=== PATIENT | female | born 1985 | race Two or more races ===

== ENCOUNTER → 2017-09-27 13:05 | Outpatient (CLI) | payer OTHER | END | disposition home or self-care (01) | LOC: PPHC 13:05 | DX: G89.11 Acute pain due to trauma (principal); M54.5 Low back pain ==

== ENCOUNTER → 2018-07-16 | Emergency (ER) | payer OTHER ==
[~2018-07-16] VITALS: Ht 167.6 cm; Wt 94.3 kg
== END | disposition home or self-care (01) ==
LOC: ER 09:10
DX: R11.11 Vomiting without nausea (principal); R55 Syncope and collapse; E74.39 Other disorders of intestinal carbohydrate absorption

== ENCOUNTER 2025-03-19 06:11 | Outpatient (CLI) | payer OTHER ==
[2025-03-19 08:19] LABS: URINE APPEARANCE Clear; URINE BILIRRUBIN Negative (NEGATIVE); URINE BLOOD Negative; URINE COLOR Yellow; URINE GLUCOSE Negative (NEGATIVE); URINE KETONE Negative (NEGATIVE); URINE LEUKOCYTE Negative; URINE NITRATE Negative
[2025-03-19 08:22] LABS: URINE BACTERIA 658.4 uL (0.0-1933); URINE EPITHELIAL CELLS 9.4 uL (0.0-38.8); URINE RBC 7.6 uL (0.0-20.8); URINE WBC 9.4 uL (0.0-23.2)
[2025-03-19 08:29] LABS: URINE CAST 0.73 uL (0.0-1.40); URINE PROTEIN 100 (NEGATIVE)
[2025-03-19 08:46] LABS: BASO % 0.7 % (0.1-1.2); EOS % 2.1 % (0.7-7.0); HEMATOCRIT 42.5 % (34.1-44.9); LYMPH # 2.43 (1.18-3.74); LYMPH % 25.6 % (19.3-53.1); MEAN CORPUSCULAR HEMOGLOBIN 27.9 pg (25.6-32.2); MONO # 0.45 (0.24-0.82); MONO % 4.7 % (4.7-12.5); NEUT % 66.6 % (34.0-71.1); PLATELET COUNT 292 K/uL (163-369); RED BLOOD COUNT 5.02 M/uL (3.93-5.22); RED CELL DISTRIBUTION WIDTH 12.8 % (11.6-14.4)
[2025-03-19 08:52] LABS: INR < 0.93; PARTIAL THROMBOPLASTIN TIME 26.2 SECONDS (22.0-34.0)
[2025-03-19 09:36] LABS: ALBUMIN 3.7 gm/dL (3.4-5.0); BILIRUBIN TOTAL 0.3 mg/dL (0.3-1.2); CALCIUM 8.8 mg/dL (8.5-10.1); CHOL HDL RATIO 3.3 (0-5.0); CREATININE SERUM 0.76 mg/dL (0.55-1.02); GFR 84.29; GLOBULINA 3.3 G/DL (2.4-3.5); POTASSIUM 4.43 mEq/L (3.5-5.1); T4 TOTAL 12.44 UG/DL (4.8-13.9); TSH 2.8 uIU/mL (0.358-3.74)
[2025-03-21 15:12] LABS: CYCLIC CITRULLINE PEPTIDE 5 units (0-19)
== END 2025-03-19 06:16 | disposition home or self-care (01) ==
LOC: LAB 06:11
PROVIDERS: ATTEND Anesthesiology
DX: Z01.89 Encounter for other specified special examinations (principal); M15.0 Primary generalized (osteo)arthritis